=== PATIENT | male | born 1995 | race Caucasian/White ===

== ENCOUNTER 2020-06-13 21:43 | Emergency (ER) | payer SELFPAY ==
[~2020-06-13] VITALS: Ht 177.8 cm; Wt 72.6 kg
[2020-06-14 08:10] VITALS: BP 105/53
== END 2020-06-14 10:08 | disposition home or self-care (01) ==
LOC: ER 21:45
DX: G40.409 Other generalized epilepsy and epileptic syndromes, not intractable, without status epilepticus (principal)
CPT/HCPCS: 70450